=== PATIENT | female | born 1940 | race Caucasian/White ===

== ENCOUNTER 2024-04-01 16:20 | Emergency (ER) | payer MEDICARE ==
[~2024-04-01 16:20] MED LIST: ACID REDUCER150 MG PO; ALEVE220 MG PO; ASPIRIN EC81 MG PO; CHROMIUM PIC1000 MCG PO; COQ-10100 MG PO; CRESTOR10 MG PO; DEMADEX10 MG PO; FISH OIL 1,0001 EAC5 PO; FOLIC ACID0.8 MG PO; FOLIC ACID1 MG PO; LEVOTHYROXINE25 MCG PO; LISINOPRIL2.5 MG PO; METAMUCIL660 GM PO; METFORMIN HCL500 MG PO; MULTI VITAMIN1 EACH PO; NIACIN500 M1 PO; NORCO 5-325 TA1 EACH PO; POTASSIUM CHLO10 ME1 PO; PROBIOTIC & AC1 EACH PO; STOOL SOFTENER100 M1 PO; TYLENOL325 MG PO; VITAMIN B-121000 MCG PO; VITAMIN B-1250 MG PO; VITAMIN B-2100 MG PO; VITAMIN B-6250 MG PO; VITAMIN C500 M1 PO; VITAMIN D5000 UNIT PO; ZETIA10 MG PO
[2024-04-01] MEDS ORDERED: JARDIANCE10 MG PO (16:48)
[2024-04-01 17:46] VITALS: BP 130/76
== END 2024-04-01 17:47 | disposition home or self-care (01) ==
LOC: ED 16:20
DX: I83.891 Varicose veins of right lower extremity with other complications (principal); I25.10 Atherosclerotic heart disease of native coronary artery without angina pectoris; R73.03 Prediabetes; Z79.84 Long term (current) use of oral hypoglycemic drugs; Z79.82 Long term (current) use of aspirin; Z79.890 Hormone replacement therapy; Z79.899 Other long term (current) drug therapy; Z88.8 Allergy status to other drugs, medicaments and biological substances
CPT/HCPCS: 99283